=== PATIENT | male | born 1990 | race American Indian/Alaskan Native ===

== ENCOUNTER 2021-09-21 08:29 | Emergency (ER) | payer SELFPAY ==
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
[2021-09-21] MEDS ORDERED: ACETAMINOPHEN 325 MG TAB PO ONE (11:57)
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
[2021-09-21 14:05] VITALS: BP 122/80
== END 2021-09-21 14:05 | disposition home or self-care (01) ==
LOC: ED 08:29
DX: S13.4XXA Sprain of ligaments of cervical spine, initial encounter (principal); S39.012A Strain of muscle, fascia and tendon of lower back, initial encounter; S00.03XA Contusion of scalp, initial encounter; S80.00XA Contusion of unspecified knee, initial encounter; V89.2XXA Person injured in unspecified motor-vehicle accident, traffic, initial encounter; Y93.89 Activity, other specified; Y92.89 Other specified places as the place of occurrence of the external cause; Y99.8 Other external cause status
CPT/HCPCS: 72070; 72125; 99284